=== PATIENT | male | born 1995 | race Caucasian/White ===

== ENCOUNTER 2017-05-26 01:59 | Emergency (ER) | payer OTHER ==
[~2017-05-26] VITALS: Ht 175.3 cm; Wt 59.0 kg
--- NOTE | ~2017-05-26 | CR72 ---
[facility] A Service of [facility] & [facility] RADIOLOGY TEXT RESULTS PATIENT: JOO WILCOX LOCATION: [facility] : [birth year] UNIT #: [id number] AGE: [address]: JERONIMO LU APRN SEX: M ORDER DR: [id number] [facility] [address] [place], [place] [address] [id number] E MR#: [id number] Acc #: [id number] NAME: JOO WILCOX : 1995 SEX: M STUDY DATE/TIME: 05/26/2017 2:35 UNIT: [facility] ROOM: STUDY DESCRIPTION: CR Chest Single View Portable Attending Physician: Jeronimo Lu Aprn Ordering Physician: Jeronimo Lu Aprn Primary Care Physician: Cesar Whitten M.D. MEDICAL IMAGING REPORT This report is preliminary unless electronic signature is present EXAM AP portable chest, 05/26/2017 HISTORY Shortness of breath for 2 days. Asthma attack. Symptoms worse today. COMPARISON None. FINDINGS A single AP portable view of the chest shows both lungs to be clear. The heart is normal in size. The mediastinal contour is normal. No significant bone abnormalities are seen. IMPRESSION Normal portable chest. Dictated by... Jo Ann Olivarez M.D. THIS IS AN ELECTRONICALLY VERIFIED REPORT Jo Ann Olivarez M.D. at 05/26/2017 9:49 PM CATY/rhina TD: 05/26/2017 03:36 JOB #: [id number] MEDICAL IMAGING REPORT Page 1 of 1 COPY
== END 2017-05-26 05:21 | disposition home or self-care (01) ==
LOC: CED 01:59
DX: J45.901 Unspecified asthma with (acute) exacerbation (principal); F17.210 Nicotine dependence, cigarettes, uncomplicated; Z88.0 Allergy status to penicillin
CPT/HCPCS: 71010; 94644; 99285